=== PATIENT | male | born 1965 | race Caucasian/White ===

== ENCOUNTER 2018-11-17 16:24 | Emergency (ER) | payer BC ==
--- NOTE | 2018-11-17 16:55 | ED.PDOC ---
History of Present Illness - General Chief Complaint: Abdominal Pain Stated Complaint: abdominal pain; n/v/d Time Seen by Provider: 11/17/18 16:52 Source: patient, RN notes reviewed, Vital Signs reviewed Additional Information: 53 YEAR OLD WHITE MALE PRESENTS WITH VOMITING DIARRHEA AND ABDOMINAL PAIN FEVER LAST 2 DAYS HE HAS BEEN EXPOSED TO [facility] LAST WEEK HE HAS HISTORY OF IBS HE WAS SEEN AT THE CLINIC HERE TODAY WHO WERE CONCERNED ABOUT HIS BLOOD PRESSURE AND THE ABDOMINAL PAIN HENSE SENT HIM HERE FOR FURTHER EVALUATION - History of Present Illness Timing/Duration: 24 hours Severity: moderate Improving Factors: nothing Worsening Factors: nothing Associated Symptoms: denies symptoms Allergies/Adverse Reactions: Allergies NO KNOWN ALLERGY Allergy (Verified 11/17/18 16:48) Home Medications: Ambulatory Orders Dicyclomine HCl [Bentyl] 20 mg PO TID PRN 11/17/18 Losartan Potassium 25 mg PO DAILY 11/17/18 Review of Systems - Review of Systems Constitutional: States: no symptoms reported EENTM: States: no symptoms reported Respiratory: States: no symptoms reported Cardiology: States: no symptoms reported Gastrointestinal/Abdominal: States: no symptoms reported Genitourinary: States: no symptoms reported Musculoskeletal: States: no symptoms reported Skin: States: no symptoms reported Neurological: States: no symptoms reported Endocrine: States: no symptoms reported Hematologic/Lymphatic: States: no symptoms reported Family Medical History - Family History Mother Family History: Unknown Physical Exam - Physical Exam General Appearance: Alert, Comfortable Ears, Nose, Throat: hearing grossly normal, normal ENT inspection, normal pharynx Neck: non-tender, full range of motion, supple Respiratory: chest non-tender, lungs clear, normal breath sounds, no respiratory distress, no accessory muscle use Cardiovascular/Chest: normal peripheral pulses, regular rate, rhythm, no edema, no gallop, no JVD Gastrointestinal/Abdominal: normal bowel sounds, non tender, soft, no organomegaly, no pulsatile mass Back Exam: normal inspection, no CVA tenderness, no vertebral tenderness Extremity: normal range of motion, non-tender, normal 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, no motor/sensory deficits, alert, normal mood/affect, oriented x 3 Skin Exam: normal color Progress - Results/Orders Results/Orders: Laboratory Tests 11/17/18 11/17/18 17:10 17:10 WBC 10.6 RBC 5.72 Hgb 17.2 Hct 51.1 MCV 89.3 MCH 30.1 MCHC 33.7 RDW 13.9 Plt Count 198 MPV 7.9 Absolute Neuts (auto) 9.90 H Absolute Lymphs (auto) 0.40 L Absolute Monos (auto) 0.30 Absolute Eos (auto) 0.00 Absolute Basos (auto) 0.00 Neutrophils % 93.1 H Lymphocytes % 3.3 L Monocytes % 2.9 Eosinophils % 0.4 L Basophils % 0.3 Sodium 140 Potassium 3.6 Chloride 103 Carbon Dioxide 25 Anion Gap 15.6 BUN 30 H Creatinine 1.06 BUN/Creatinine Ratio 28.3 H Random Glucose 113 H Serum Osmolality 286.4 Calcium 9.5 Total Bilirubin 1.4 H AST 28 ALT 31 Alkaline Phosphatase 65 Serum Total Protein 7.9 Albumin 4.7 Globulin 3.2 Albumin/Globulin Ratio 1.5 Departure - Departure Clinical Impression: Abdominal pain, Irritable bowel syndrome (IBS) Time of Disposition: 19:37 Disposition: Discharge to Home or Self Care Condition: Good Departure Forms: ED Discharge - Pt. Copy, Patient Portal Self Enrollment Instructions: DI for Abdominal Pain-Adult Referrals: COLIN BUSTILLO MD [Primary Care Provider] - 1-2 Weeks Home Medications: Ambulatory Orders Dicyclomine HCl [Bentyl] 20 mg PO TID PRN 11/17/18 Losartan Potassium 25 mg PO DAILY 11/17/18
[2018-11-17] MEDS ORDERED: HYOSCYAMINE SULFATE 0.5 MG/ML VIAL IV ONE (17:00)
[2018-11-17] MEDS ORDERED: SODIUM CHLORIDE 0.9% 1000ML 1,000 ML IVS ONE (17:00)
[2018-11-17] MEDS ORDERED: ONDANSETRON INJ 4 MG/2 ML VIAL IV ONE (17:01)
[2018-11-17] MEDS ORDERED: DICYCLOMINE HCL INJ 20 MG/2 ML AMP IM ONE (17:50)
--- NOTE | 2018-11-17 19:07 | CT ---
CT ABDOMEN PELVIS WITH IV CONTRAST Exam date: November 17, 2018 Comparison: None Indication: Abdominal pain, fever Technique: Multiple helical axial images were obtained through the abdomen and pelvis using intravenous contrast. Coronal and sagittal reformatted images were obtained. All CT scans at this facility use dose modulation, iterative reconstruction, and/or weight-based dosing when appropriate to reduce radiation dose to as low as reasonably achievable. Findings: Lung bases: [Appear unremarkable]. Liver: [Homogenous attenuation is noted.] Gallbladder/biliary: [Cholecystectomy changes are present. No significant biliary ductal dilatation.] Pancreas: [Unremarkable. No evidence of ductal enlargement.] Spleen: Appears unremarkable. No splenomegaly. Adrenals: Unremarkable. Kidneys and ureters: [No evidence of hydronephrosis. Normal enhancement.] Bladder: Unremarkable. Pelvic organs: Unremarkable. Bowel: [Nonspecific fluid in the small and large bowel noted. No evidence of bowel obstruction. No bowel wall thickening.] Appendix appears unremarkable. Vasculature: Unremarkable. Peritoneum: No free air. No significant free fluid. Lymph nodes: Unremarkable. Soft tissues: A few surgical clips in the inguinal regions are noted. Bones: Unremarkable. Impression: No evidence for an acute process within the abdomen or pelvis. Electronically signed by: Amado Rivers MD 11/17/2018 7:06 PM CDT
[2018-11-17 22:30] VITALS: BP 154/79; TEMP 99.8; O2SAT 98
== END 2018-11-17 20:13 | disposition home or self-care (01) ==
LOC: ER 16:24
DX: K58.9 Irritable bowel syndrome, unspecified (principal); R10.9 Unspecified abdominal pain
CPT/HCPCS: 36415; 74177; 80053; 85025; J0500; J2405; J7030

== ENCOUNTER → 2019-08-27 | Outpatient (CLI) | payer BC | LOC: GMAE 15:31 | PROVIDERS: ATTEND Family Medicine | DX: Z00.00 Encounter for general adult medical examination without abnormal findings (principal) ==

== ENCOUNTER → 2020-04-29 | Outpatient (CLI) | payer BC | LOC: GMAE 11:58 | PROVIDERS: ATTEND Family Medicine | DX: R53.83 Other fatigue (principal) ==